=== PATIENT | male | born 1990 | race Two or more races ===

== ENCOUNTER 2023-09-02 10:59 | Emergency (ER) | payer SELFPAY ==
[~2023-09-02] VITALS: Ht 172.7 cm; Wt 76.3 kg
[2023-09-02 11:24] VITALS: PULSE 120; RESP 16; O2SAT 97
[2023-09-02] MEDS: SODIUM CHLORIDE 0.9% 2,000 ML IV ONE ×2 (11:34→12:16)
[2023-09-02] MEDS: LORazepam 2MG/ML-1ML VIAL IV ONE (11:37)
[2023-09-02] MEDS: THIAMINE HCL 100 MG TAB PO ONE (11:37)
[2023-09-02] MEDS: MULTIPLE VITAMIN TAB PO ONE (11:37)
[2023-09-02 11:50] LABS: Basophils # (auto) 0 10 ^3/uL (0-0.2); Basophils % (auto) 0.5 % (0.0-2.0); Eosinophils # (auto) 0 10 ^3/uL (0-0.8); Eosinophils % (auto) 0.1 % (0.0-7.0); Hematocrit 45.7 % (41.0-53.0); Hemoglobin 15.5 g/dL (13.5-17.5); Lymphocytes # (auto) 1.3 10 ^3/uL (0.4-5.4); Lymphocytes % (auto) 17.8 % (10.0-50.0); Mean Corpuscular Hemoglobin 30.2 pg (28.0-32.0); Mean Corpuscular Volume 88.8 fL (80.0-100.0); Monocytes # (auto) 0.4 10 ^3/uL (0-1.3); Monocytes % (auto) 5.8 % (0.0-12.0); Neutrophils # (auto) 5.6 10 ^3/uL (1.6-8.6); Neutrophils % (auto) 75.8 % (37.0-80.0); Nucleated Red Blood Cells % 0.8 %; Red Blood Cells 5.14 10^6/uL (4.5-5.90); Red Cell Distribution Width 12.7 % (11.8-14.3); White Blood Cell 7.3 10^3/uL (4.4-10.8)
[2023-09-02 12:06] LABS: Acetaminophen < 2.0 UG/ML (10.0-20.0)
[2023-09-02 12:07] LABS: Alanine Aminotransferase 17 U/L (7-40); Albumin 4.5 g/dL (3.2-4.8); Alkaline Phosphatase 73 U/L (46-116); Anion Gap 13 (5-15); Aspartate Aminotransferase 9 U/L (13-40); Bilirubin, Total 0.3 mg/dL (0.2-1.0); Blood Urea Nitrogen 10 mg/dL (9-23); Calcium 9.8 mg/dL (8.5-10.1); Carbon Dioxide 22 mmol/L (20-30); Chloride 100 mmol/L (98-107); Creatine Kinase IFCC 32 U/L (46-171); Glucose 340 mg/dL (74-106); Potassium 4.2 mmol/L (3.5-5.1); Salicylate < 3.0 mg/dL (2.8-20.0); Sodium 135 mmol/L (136-145); Total Protein 7.5 g/dL (5.7-8.2)
[2023-09-02 12:08] LABS: Lactic Acid w/Reflex 4.3 mmol/L (0.4-2.0)
[2023-09-02 13:35] LABS: Amphetamine Screen, Urine Pos (NEGATIVE); Barbiturate Scree,Urine Neg (NEGATIVE); Benzodiazephine Screen, Urine Neg (NEGATIVE); Cocaine Screen, Urine Neg (NEGATIVE); Opiate Scree,Urine Neg (NEGATIVE)
[2023-09-02 13:36] LABS: Cannabinoid Screen, Urine Pos (NEGATIVE); Phencyclidine Screen, Urine Neg (NEGATIVE)
[2023-09-02] MEDS ORDERED: CHL10C PO (14:28)
[2023-09-02] MEDS ORDERED: METF-370 PO (14:28)
[2023-09-02 14:33] VITALS: BP 136/82; PULSE 104; RESP 14; TEMP 97.4; O2SAT 97
== END 2023-09-02 18:20 | disposition home or self-care (01) ==
LOC: ER 10:59
DX: E11.65 Type 2 diabetes mellitus with hyperglycemia (principal); F41.9 Anxiety disorder, unspecified; F15.90 Other stimulant use, unspecified, uncomplicated; F10.10 Alcohol abuse, uncomplicated; R74.02 Elevation of levels of lactic acid dehydrogenase [LDH]; Z79.899 Other long term (current) drug therapy; Y90.0 Blood alcohol level of less than 20 mg/100 ml
CPT/HCPCS: 36415; 80053; 80307; 80320; 80329; 82550; 83036; 83605; 84484; 85025; 93005; 96361; 96374; 99284; J2060; J7030